=== PATIENT | male | born 1940 | race Caucasian/White ===

== ENCOUNTER → 2019-06-15 | Outpatient (CLI) | payer MEDICARE ==
[2019-06-05 10:45] VITALS: BP 122/54
[~2019-06-15] MED LIST: ALBU0.63 NEB; ALPR0.5T6 PO; AMIT25TA PO; ASPI-482 PO; ASPI325T8 PO; BUDE10.2 IH; ESCITALOPRAM OX10 MG PO; FLUT1DIS3 IH; GABA300C18 PO; HYDR-2765 PO; ISOS30TA4 PO; LEVA1.2527 NEB; LIDO700A4 TP; MULT1TAB52 PO; OMEP20TA63 PO; OMEP40CA45 PO; ONDA4TAB12 PO; PRIM50TA24 PO
--- NOTE | 2019-06-15 12:53 | RAD ---
EXAM: Right lower extremity venous Doppler. HISTORY: Right lower extremity pain/swelling. COMPARISON: None. FINDINGS: Grayscale and Doppler analysis of the right lower extremity deep venous systems was performed with graded compression and augmentation. The common femoral, greater saphenous, superficial femoral, popliteal and calf veins were assessed. There is no evidence of deep venous thrombosis. IMPRESSION: 1. No evidence of deep venous thrombosis in the right lower extremity. Electronically signed by: Jorge Mckinley MD (06/15/2019 12:50 PM) [id number]
== END | disposition home or self-care (01) ==
LOC: US 11:50
PROVIDERS: ATTEND Orthopaedic Surgery Sports Medicine
DX: R22.41 Localized swelling, mass and lump, right lower limb (principal); Z96.641 Presence of right artificial hip joint
CPT/HCPCS: 93971

== ENCOUNTER → 2020-06-19 | Outpatient (CLI) | payer MEDICARE ==
[2020-05-24 11:00] VITALS: BP 145/69
[~2020-06-19] MED LIST changes: -ISOS30TA4 PO; +ISOS30TA68 PO; +MULT-445 PO; -MULT1TAB52 PO; +PROVENTIL HFA6.7 G2 INH
[2020-06-19] MEDS: REGADENOSON 0.4 MG/5 ML DISP.SYRIN. IV ONE (11:04)
--- NOTE | 2020-06-19 17:48 | RAD ---
MR#: [id number] Date of Study: 06/19/2020 Ordering Physician: OLEGARIO SHERWOOD, Referring Physician: VENTURA NELSON Tech: KATIE Murphy APPROVED REPORT Test Type: Pharmacological Stress Nurse/Tech: Cherelle Gonzalez RN Test Indications: chronic chest pain Cardiac History: x-smoker Medications: See Electronic Medical Record Medical History: See Electronic Medical Record Resting ECG: SR with PAC Resting Heart Rate: 67 bpm Resting Blood Pressure: 130/70mmHg Pretest Chest Pain: None Nurse/Tech Notes S1S2. Pt port a cath deaccessed and packed with heparin per pt reguest. Consent: The procedure was explained to the patient in lay terms. Informed consent was witnessed. Ricardo eout was entered into [employer]. History and Stress Test performed by Brandie Boyd RT (R) (N) Pharm. Details Pharmacologic stress testing was performed using 0.4mg per 5ml of regadenoson given intravenously ove r 7-10 seconds. Stress Symptoms No chest pain or symptoms. POST EXERCISE Reason for Termination: Infusion complete Max HR: 114 bpm Max Blood Pressure: 136/52mmHg Blood Pressure response to exercise: Normal blood pressure response during stress. Heart Rate response to exercise: normal response Chest Pain: No. Arrhythmia: No. ST Change: No. INTERPRETATION Stress EKG Conclusion: The resting EKG showed a sinus rhythm with nonspecific ST-T wave changes. The stress EKG showed no significant changes from baseline. No EKG evidence of stress-induced ischemia. Imaging Protocol IMAGE PROTOCOL: Rest Tc-99m/stress Tc-99m 1 day Rest: Stress: Viability: Radiopharm.Tc99m JjapovfimJl02h Sestamibi Tukx55eLy 32mCi Duration 15min. 13min. Img Date 06/19/2020 06/19/2020 Inj-Img Nazk56oyn. 60min. Rest Admin Site:RT CHEST PORTAdministrator:KATIE Murphy Stress Admin Site: RT CHEST PORTAdministrator: MARIYA Best, ARRT (R)(N) STRESS DATA End Diast. Vol.91.0mlLVEDV index BSA40.0ml End Syst. Vol.28.0mlLVESV index BSA12.0ml Myocardial Xkfl623.0gEject. Tpqepcmk90.0% Stress Scores Regional WT1.00Summed WT17.00 Regional WM0.00Summed WM1.00 LV Perfusion The stress scans show an inferior defect. The rest scans show a slightly larger inferior defect. Nuclear imaging shows no reversible ischemia. Nuclear imaging shows a fixed inferior defect suggestive of of a prior infarct. However LV systolic function is normal and this may represent a technical artifact. Wall Motion Left ventricular systolic function is normal with an ejection fraction of 69%. LV Perf. Quant 17 Seg. SSS8.00 17 Seg. SRS18.00 17 Seg. SDS1.00 Stress Defect Extent (% LAD)1.90Rest Defect Extent (% LAD)30.00Rev. Defect Extent (% LAD)0.00 Stress Defect Extent (% LCX) 11.30Rest Defect Extent (% LCX)23.80Rev. Defect Extent (% LCX)0.00 Stress Defect Extent (% RCA)52.20Rest Defect Extent (% RCA)55.60Rev. Defect Extent (% RCA)0.00 Stress Defect Extent (% SATNAM)18.70Rest Defect Extent (% SATNAM)35.90Rev. Defect Extent (% SATNAM)0.00 Conclusion 1. No EKG evidence of stress-induced ischemia. 2. Nuclear imaging shows no reversible ischemia. 3. Nuclear imaging shows a fixed inferior defect. This may represent a prior infarct or possibly at technical artifact as noted above. 4. Normal left ventricular systolic function with no regional wall motion abnormalities and an ejecti on fraction of 69%. 5. Moderately low risk Lexiscan nuclear stress test with intact LV systolic function and no reversibl e ischemia. Signed by : Norberto Vazquez MD Electronically Approved : 06/19/2020 17:48:16
== END ==
LOC: NM 09:41
PROVIDERS: ATTEND Internal Medicine Cardiovascular Disease
DX: R07.9 Chest pain, unspecified (principal); Z87.891 Personal history of nicotine dependence
CPT/HCPCS: 78452; 93017; A9500; J2785

== ENCOUNTER → 2020-11-07 | Outpatient (CLI) | payer MEDICARE ==
[2020-08-24 23:59] VITALS: BP 125/56
[~2020-11-07] MED LIST changes: +CEFD300C PO; -OMEP40CA45 PO; +OMEP40CA7 PO; +PRED-220 PO
[2020-11-07 09:22] LABS: ALBUMIN 3.6 g/dL (3.4-5.0); ALBUMIN/GLOBULIN RATIO 1.1 (1.0-1.7); GFR 71.5; POTASSIUM 4.6 mmol/L (3.5-5.1); TOTAL BILIRUBIN 0.3 mg/dL (0.2-1.0); TOTAL PROTEIN 6.9 g/dL (6.4-8.2)
== END ==
LOC: LAB 08:51
PROVIDERS: ATTEND Internal Medicine Cardiovascular Disease
DX: I35.0 Nonrheumatic aortic (valve) stenosis (principal)
CPT/HCPCS: 36415; 80053; 83880

== ENCOUNTER → 2021-04-07 | Outpatient (CLI) | payer MEDICARE ==
[2020-08-24 23:59] VITALS: BP 125/56
--- NOTE | 2021-04-07 15:59 | KCIC ---
EXAM: Chest, 2 views. HISTORY: Small cell lung cancer. COPD. COMPARISON: 08/22/2020 FINDINGS: 2 views of chest are obtained. There is stable left suprahilar opacity likely due to scarri ng/fibrosis. There is no infiltrate, pleural effusion or pneumothorax. The heart is normal in size. IMPRESSION: Stable left suprahilar opacity likely due to scarring/fibrosis. This is better characteri zed on the comparison CT. Electronically signed by: Brandie Gutierrez MD (04/07/2021 3:57 PM) [id number]
== END ==
LOC: KCIC 14:43
PROVIDERS: ATTEND Internal Medicine
DX: R91.8 Other nonspecific abnormal finding of lung field (principal); J44.9 Chronic obstructive pulmonary disease, unspecified; J44.1 Chronic obstructive pulmonary disease with (acute) exacerbation; Z85.118 Personal history of other malignant neoplasm of bronchus and lung
CPT/HCPCS: 71046

== ENCOUNTER → 2021-04-09 | Outpatient (CLI) | payer MEDICARE ==
[2020-08-24 23:59] VITALS: BP 125/56
[~2021-04-09] MED LIST changes: +IOHEXOL 240 MG/ML 50ML VIAL. PO ONE; +IOHEXOL 300 MG/ML 100ML VIAL. IV ONE
--- NOTE | 2021-04-09 15:43 | KCIC ---
EXAM: Abdomen and pelvis CT with intravenous contrast. HISTORY: Pain. Dark stools. Lung cancer. TECHNIQUE: Computed tomographic images of the abdomen and pelvis were obtained following the administ ration of intravenous contrast. Multiplanar reformatting was performed. *One or more of the following individualized dose reduction techniques were utilized for this examina tion: 1. Automated exposure control. 2. Adjustment of the mA and/or kV according to patient size. 3. Use of iterative reconstruction technique. COMPARISON: Chest CT dated 08/22/2020. FINDINGS: Evaluation of the lower thorax demonstrates no infiltrate, pleural effusion or pneumothorax . The heart is normal in size. No hepatic lesion is seen. The gallbladder, pancreas, spleen, kidneys and adrenal glands are unremarkable. The stomach is unremarkable. There is no evidence of bowel obstr uction. There is no appendicitis. There is no abnormal bowel wall thickening. There is distal colonic diverticulosis. There is no convincing diverticulitis. The bladder and prostate are unremarkable. Th ere are small fat-containing right greater than left inguinal hernias. There is borderline aneurysmal dilatation of the infrarenal abdominal aorta to a caliber of 3.0 cm. There is aortobiiliac atheroscl erosis. There is no lymphadenopathy. There is a right hip arthroplasty. There are degenerative change s involving the left hip and throughout the visualized spine. IMPRESSION: 1. Distal colonic diverticulosis. There is no convincing diverticulitis. 2. 3.0 cm borderline infrarenal abdominal aortic aneurysm. Electronically signed by: Brandie Gutierrez MD (04/09/2021 3:41 PM) [id number]
== END ==
LOC: KCIC CT 12:48
PROVIDERS: ATTEND Internal Medicine
DX: K57.30 Diverticulosis of large intestine without perforation or abscess without bleeding (principal); K40.90 Unilateral inguinal hernia, without obstruction or gangrene, not specified as recurrent; M16.12 Unilateral primary osteoarthritis, left hip; M47.819 Spondylosis without myelopathy or radiculopathy, site unspecified; T50.Z95A Adverse effect of other vaccines and biological substances, initial encounter; K21.9 Gastro-esophageal reflux disease without esophagitis; R19.5 Other fecal abnormalities; R25.1 Tremor, unspecified
CPT/HCPCS: 74177; 82565; Q9966; Q9967

== ENCOUNTER → 2021-05-06 | Outpatient (CLI) | payer MEDICARE ==
[2020-08-24 23:59] VITALS: BP 125/56
[~2021-05-06] MED LIST changes: -IOHEXOL 240 MG/ML 50ML VIAL. PO ONE; -IOHEXOL 300 MG/ML 100ML VIAL. IV ONE; +PERFLUTREN PROTEIN-A MICROSPHR 0.22 MG/ML 3 ML VIAL. IV ONE
--- NOTE | 2021-05-07 14:50 | CARD ---
MR#: [id number] Date of Study: 05/06/2021 Ordering Physician: OLEGARIO SHERWOOD, Referring Physician: OLEGARIO SHERWOOD, Tech: Raquel Beltran [facility] APPROVED REPORT EXAM: Two-dimensional and M-mode echocardiogram with Doppler and color Doppler. Other Information Quality : Technically LimitedHR: 63bpm Rhythm : NSRTechnically limited study due to body habitus. INDICATION Dyspnea Echo Enhancing Agent Indication: Endocardial border delineation Agent/Amount Used: Optison 3mL RISK FACTORS Hypertension Hyperlipidemia 2D DIMENSIONS RVDd3.2 (2.9-3.5cm)Left Atrium(2D)3.0 (1.6-4.0cm) IVSd1.2 (0.7-1.1cm)Aortic Root(2D)3.5 (2.0-3.7cm) LVDd4.4 (3.9-5.9cm)LVOT Diameter2.1 (1.8-2.4cm) PWd1.2 (0.7-1.1cm)LVDs2.7 (2.5-4.0cm) FS (%) 39.1 %SV62.3 ml LVEF(%)69.8 (>50%) Aortic Valve AoV Peak Moise.338.3cm/sAoV VTI76.3cm AO Peak GR.45.8mmHgLVOT Peak Moise.93.8cm/s AO Mean GR.25mmHgAVA (VMAX)0.94cm2 Mitral Valve MV E Xotsibsk84.4cm/sMV DECEL [id number] MV A Dmdhmnvm92.7cm/sE/A Ratio0.8 Pulmonary Valve PV Peak Uejrhrpu49.7cm/s LEFT VENTRICLE The left ventricle is normal size. There is mild concentric left ventricular hypertrophy. The left ve ntricular systolic function is normal and the ejection fraction is within normal range. Estimated eje ction fraction 65%. There is normal LV segmental wall motion. Transmitral Doppler flow pattern is Gra de I-abnormal relaxation pattern. RIGHT VENTRICLE The right ventricle is normal size. There is normal right ventricular wall thickness. The right ventr icular systolic function is normal. ATRIA The left atrium size is normal. The right atrium size is normal. The interatrial septum is intact wit h no evidence for an atrial septal defect or patent foramen ovale as noted on 2-D or Doppler imaging. AORTIC VALVE The aortic valve is calcified and displays decreased opening. Doppler and Color Flow revealed no sign ificant aortic regurgitation. There is moderate to severe valvular aortic stenosis visually. By Doppl er criteria there is mild to moderate aortic stenosis. MITRAL VALVE The mitral valve is normal in structure and function. There is no evidence of mitral valve prolapse. There is no mitral valve stenosis. Doppler and Color Flow revealed no mitral valve regurgitation note d. TRICUSPID VALVE The tricuspid valve is normal in structure and function. Doppler and Color Flow revealed no tricuspid valve regurgitation noted. There is no tricuspid valve stenosis. PULMONIC VALVE Doppler and Color Flow revealed no pulmonic valvular regurgitation. There is no pulmonic valvular tere nosis. GREAT VESSELS The aortic root is normal in size. The ascending aorta is normal in size. The IVC is normal in size a nd collapses >50% with inspiration. PERICARDIAL EFFUSION There is no evidence of significant pericardial effusion. Critical Notification Critical Value: No <Conclusion> The left ventricular systolic function is normal and the ejection fraction is within normal range. E stimated ejection fraction 65%. There is normal LV segmental wall motion. There is moderate to severe valvular aortic stenosis visually. By Doppler criteria there is mild to moderate aortic stenosis. Technically difficult study. Consider KATIE for further delineation of valve disease versus cardiac ca theterization. Signed by : Olegario Sherwood, Electronically Approved : 05/07/2021 14:49:43
== END ==
LOC: ECHO 09:42
PROVIDERS: ATTEND Internal Medicine Cardiovascular Disease
DX: I35.0 Nonrheumatic aortic (valve) stenosis (principal); I51.7 Cardiomegaly
CPT/HCPCS: 93306; Q9956; C8929

== ENCOUNTER 2021-05-28 09:01 | Outpatient (CLI) | payer MEDICARE ==
[2021-05-28] VITALS (14 sets, daily range): BP systolic 78–174; BP diastolic 56–78
[~2021-05-28] VITALS: Ht 180.3 cm; Wt 101.8 kg
[~2021-05-28 09:01] MED LIST changes: -PERFLUTREN PROTEIN-A MICROSPHR 0.22 MG/ML 3 ML VIAL. IV ONE
[2021-05-28] MEDS ORDERED: HEPARIN for ARTERIAL LINE 1,500 ML ONE (09:17)
[2021-05-28] MEDS ORDERED: IODIXANOL 320 MG/ML 100 ML VIAL. ONE (09:17)
[2021-05-28] MEDS ORDERED: LIDOCAINE 1% Multi-Dose 20 ML VIAL. ONE (09:17)
[2021-05-28 09:51] LABS: HEMATOCRIT 38.2 % (39.0-53.0); HEMOGLOBIN 12.7 g/dL (13.0-17.5); RED BLOOD COUNT 4.08 x10^6/uL (4.30-5.70); WHITE BLOOD COUNT 4.5 x10^3/uL (4.0-11.0)
[2021-05-28 10:05] LABS: PROTHROMBIN TIME PATIENT 13.7 SEC (11.7-14.0)
[2021-05-28 10:10] LABS: CALCIUM 8.6 mg/dL (8.5-10.1); CREATININE 0.9 mg/dL (0.7-1.3); GFR 80.8; POTASSIUM 4.6 mmol/L (3.5-5.1)
[2021-05-28] MEDS ORDERED: fentaNYL PF VIAL 100 MCG/2 ML VIAL ONE ×2 (10:24→12:37)
[2021-05-28] MEDS ORDERED: HEPARIN for IV BOLUS 10,000 UNIT/10 ML VIAL. ONE (10:24)
[2021-05-28] MEDS ORDERED: MIDAZOLAM HCL/PF 2 MG/2 ML VIAL. ONE (10:24)
[2021-05-28] MEDS ORDERED: VERAPAMIL 5 MG/2 ML VIAL. ONE (10:24)
[2021-05-28] MEDS ORDERED: NITROGLYCERIN 200 MCG/2 ML SYRINGE FOR CATH/VASC LAB. ONE (10:25)
[2021-05-28] MEDS ORDERED: LIDOCAINE 1% PF 2 ML VIAL. INJ ONE (10:45)
[2021-05-28] MEDS ORDERED: IODIXANOL 320 MG/ML 100 ML VIAL. IART ONE (10:45)
[2021-05-28] MEDS ORDERED: VERAPAMIL 5 MG/2 ML VIAL. IART ONE (10:45)
[2021-05-28] MEDS ORDERED: fentaNYL PF VIAL 100 MCG/2 ML VIAL IV ONE ×2 (10:45→13:00)
[2021-05-28] MEDS ORDERED: MIDAZOLAM HCL/PF 2 MG/2 ML VIAL. IV ONE (10:45)
[2021-05-28] MEDS ORDERED: HEPARIN for IV BOLUS 10,000 UNIT/10 ML VIAL. IART ONE (10:45)
[2021-05-28] MEDS ORDERED: NITROGLYCERIN 200 MCG/2 ML SYRINGE FOR CATH/VASC LAB. IART ONE (10:45)
[2021-05-28] MEDS ORDERED: LIDOCAINE 1% Multi-Dose 20 ML VIAL. INJ ONE (11:30)
--- NOTE | 2021-05-28 12:49 | NUR ---
Order received from Dr. Hayes to give Fentanyl 50 mcg x1 IVP for patient's back pain. Has chronic back pain and is not able to lay flat for long periods of time. Groin site is soft, no bleeding. VS stable. No sign of hematoma. Patient states this is his "normal" back pain. See VS, vasc assessments.
--- NOTE | 2021-05-28 12:57 | CARD ---
MR#: [id number] Date of Study: 05/28/2021 Ordering Physician: OLEGARIO SHERWOOD, Referring Physician: OLEGARIO SHERWOOD, Tech: RT Kalani(R) APPROVED REPORT Technologist: RT Kalani(R) Nurse: Kaleigh Aden RN Procedure(s) performed: Fluoro Time: 5.3 min Dose: 43 Gycm2 Mod Sedation: 28 MIN Contrast:46cc's Left heart cath, right heart cath, coronary angiography, aortic valve study INDICATION The indication(s) include : dyspnea. [facility] Clinical Frailty Scale [facility] Clinical Frailty Scale: Moderately Frail Heart Failure Heart Failure: Yes If Yes, Newly Diagnosed: No If Yes, HF Type: Diastolic If Yes, NYHA Class: Class II CASE TECHNIQUE IV conscious sedation was used throughout procedure with appropriate monitoring and was performed in the presence of a registered nurse who was an independent trained observer other than the physician p erforming the procedure. During this case, Fluoroscopy and low osmolar contrast were used for imaging . Specimen(s) Removed: N/A Estimated Blood loss: 15 cc's. PROCEDURE NARRATIVE Clinical information: 80-year-old male with past medical history of COPD, lung cancer currently in remission and history of moderate aortic stenosis presented to the office with worsening exertional dyspnea and NYHA class II -III symptoms depending on activity level. Due to discrepancy between echocardiographic parameters a nd the patient's symptoms and physical examination regarding his aortic stenosis decision was made to proceed with cardiac catheterization for further evaluation and treatment. Procedure details: After appropriate informed consent the right wrist, right neck and right groin were prepped and drape d in usual sterile fashion. Under 1% lidocaine local anesthesia and ultrasound guidance a 5 Finnish s angelo was placed in the right internal jugular vein, 6 Finnish sheath in the right radial artery and a 4 Finnish sheath in the right common femoral artery via the modified Seldinger technique. A 5 Finnish PA catheter was then advanced to the right heart chambers and pressures and saturations were obtaine d. A diagnostic angiography was then performed with a 6 Finnish TIG catheter. Left ventricular end-d iastolic pressure was obtained with a JR4 catheter and a pullback was performed. A pigtail catheter was also placed in the ascending aorta and simultaneous pressures across the aortic valve were measur ed. At case completion the wires and catheters were removed and hemostasis was achieved via manual c ompression of the right neck and right groin and a Terumo radial band in the right wrist. No acute complications. Findings: Right heart catheterization: RA 4 mmHg RV 25/0/4 PA 25/8/14 Wedge 16 mmHg PA saturation 78% Arterial saturation 95% Argelia cardiac output 8.3 L/min, cardiac index 3.8 Aorta 150/80 LVEDP 15 mmHg Simultaneous aortic valve gradient measurements with a pigtail catheter and JR4 revealed a mean gradi ent of 31 mmHg with a valve area of 1.4 cm Coronary angiography: Left main is a large-caliber vessel with a distal 20% stenosis LAD is a moderate to large caliber vessel with mild luminal irregularities of up to 30% D1 is a small caliber vessel with mild luminal irregularities Left circumflex is a large caliber nondominant vessel with mild luminal irregularities of up to 30%. OM1 is a moderate caliber vessel with mild diffuse irregularities of up to 30% RCA is a large caliber dominant vessel with a long diffuse mid to distal heavily calcified 50% stenos is. At the distal segment of this lesion there is a more severe 80% stenosis prior to the bifurcatio n. RPDA and RPL are moderate caliber vessels with mild luminal irregularities Conclusion 1. Normal biventricular filling pressures 2. No evidence of pulmonary hypertension 3. High cardiac output 4. Moderate aortic stenosis, mean gradient 31 mmHg, aortic valve area 1.4 cm 5. One-vessel coronary artery disease involving a heavily calcified mid to distal RCA. Recommendations 1. At this present time the patient does not have any significant angina and appears to be euvolemic with normal cardiac output. Given his preserved LV function we will continue medical therapy only a nd defer any aggressive intervention of the RCA stenosis. No acute intervention indicated for the ao rtic stenosis. Discussed with family. Signed by : Olegario Sherwood, Electronically Approved : 05/28/2021 12:56:24
--- NOTE | 2021-05-28 14:40 | NUR ---
Patient's PIV removed, TR band removed-- dressing applied. No bleeding at R IJ site, radial or groin site. Instructions provided on site care, sedation. Patient and daughter verbalized understanding. Patient lives with daughter who is driving him home. VS stable. RN emphasized importance of not using R leg or wrist. No driving, no lifting.
== END 2021-05-28 14:45 | disposition home or self-care (01) ==
LOC: CCL 09:01
PROVIDERS: ATTEND Internal Medicine Cardiovascular Disease
DX: R06.09 Other forms of dyspnea (principal); I25.10 Atherosclerotic heart disease of native coronary artery without angina pectoris; J44.9 Chronic obstructive pulmonary disease, unspecified; I35.0 Nonrheumatic aortic (valve) stenosis; K21.9 Gastro-esophageal reflux disease without esophagitis; F41.9 Anxiety disorder, unspecified; F32.9 Major depressive disorder, single episode, unspecified; Z87.891 Personal history of nicotine dependence; Z79.899 Other long term (current) drug therapy; Z98.890 Other specified postprocedural states
CPT/HCPCS: 36415; 76937; 80048; 85027; 85610; 93460; 99152; 99153; C1769; C1773; C1894; J1644; J2250; J3010; J3490; Q9967

== ENCOUNTER → 2021-06-02 | Outpatient (CLI) | payer MEDICARE ==
[2021-05-28 14:45] VITALS: BP 143/60
--- NOTE | 2021-06-02 17:27 | RAD ---
US TESTICULAR History: Reason: Left Scrotal Swelling; R/O Inguinal Hernia / Spl. Instructions: / History: Comparison: None. Technique: Multiple grayscale, color flow Doppler and Doppler spectral analysis images of the scrotum are obtained. Findings: Right testicle measures 3.0 x 2.8 x 2.2 cm. Right testicle demonstrates normal parenchymal echogenic ity. Right epididymis is unremarkable. Left testicle measures 4.4 x 3.1 x 3.0 cm. Rete testis. Left epididymis is unremarkable. Large left hydrocele. Small right hydrocele. No varicocele. No scrotal hyperemia or swelling. No evid ence of inguinal hernia. Doppler imaging demonstrates normal flow to both testicles, without evidence of torsion. IMPRESSION: 1. Large left hydrocele. 2. Small right hydrocele. Electronically signed by: Yusuf Murillo DO (06/02/2021 5:25 PM) [facility]
== END ==
LOC: US 15:39
PROVIDERS: ATTEND Internal Medicine
DX: N43.3 Hydrocele, unspecified (principal); R33.9 Retention of urine, unspecified; N50.89 Other specified disorders of the male genital organs
CPT/HCPCS: 76870